=== PATIENT | male | born 1970 | race Hispanic/Latino ===

== ENCOUNTER 2020-05-25 21:30 | Emergency (ER) | payer BC ==
[~2020-05-25] VITALS: Ht 172.7 cm; Wt 80.0 kg
[~2020-05-25 21:30] MED LIST: DEPO-MEDROL80 MG/ML IM; FLEXERIL5 MG PO; NAPROSYN500 MG PO
[2020-05-25] MEDS ORDERED: PERCOCET 5/325M1 TAB PO (22:57)
[2020-05-25] MEDS ORDERED: AMOXICILLIN500 MG PO (22:57)
[2020-05-25] MEDS ORDERED: ACETIC ACID2 % OT (22:57)
[2020-05-26 00:10] VITALS: BP 136/72
== END 2020-05-26 00:10 | disposition home or self-care (01) | DRG 153 ==
LOC: ED 21:30
DX: H66.93 Otitis media, unspecified, bilateral (principal); H60.93 Unspecified otitis externa, bilateral; E03.9 Hypothyroidism, unspecified

== ENCOUNTER → 2022-07-09 | Emergency (ER) | payer BC ==
[~2022-07-09] MED LIST changes: +ACETIC ACID2 % OT; +AMOXICILLIN500 MG PO; +PERCOCET 5/325M1 TAB PO
== END | disposition home or self-care (01) | DRG 951 ==
LOC: ED 13:28 → LWOBS 13:33
DX: Z53.21 Procedure and treatment not carried out due to patient leaving prior to being seen by health care provider (principal)